=== PATIENT | female | born 1975 | race Caucasian/White ===

== ENCOUNTER 2018-01-18 07:56 | Day surgery (SDC) | payer OTHER ==
[2018-01-17 13:30] VITALS: BMI 20.9
[2018-01-18] MEDS ORDERED: EPINEPHrine 1 MG/ML AMP ONE (09:45)
[2018-01-18] MEDS ORDERED: Fentanyl 100 MCG/2 ML VIAL ONE ×4 (09:59→12:43)
[2018-01-18] MEDS ORDERED: Lidocaine 1% PF 5 ML VIAL ONE (10:03)
[2018-01-18] MEDS ORDERED: Ondansetron HCl/PF 4 MG/2 ML Vial ONE (10:03)
[2018-01-18] MEDS ORDERED: Dexamethasone 20 MG/5 ML VIAL ONE (10:03)
[2018-01-18] MEDS ORDERED: Glycopyrrolate 0.2 MG/ML 5 ML SYRINGE ONE (10:03)
[2018-01-18] MEDS ORDERED: PROPOFOL 200 MG/20 ML VIAL ONE (10:03)
[2018-01-18] MEDS ORDERED: Midazolam HCl 2 mg/2 ml Vial ONE (10:18)
[2018-01-18] MEDS ORDERED: PROPOFOL 20 ML ONE (11:13)
[2018-01-18] MEDS ORDERED: Ferric Subsulfate 8 ML BOT ONE (11:29)
[2018-01-18] MEDS ORDERED: Meperidine HCl/PF 25 MG/ML VIAL IV PRN (12:00)
[2018-01-18] MEDS ORDERED: Ondansetron HCl/PF 4 MG/2 ML Vial IVP PRN (12:00)
[2018-01-18] MEDS ORDERED: Promethazine HCl 25 MG/ML VIAL IM/IV PRN (12:00)
[2018-01-18] MEDS ORDERED: Meperidine HCl/PF 25 MG/ML VIAL ONE (12:13)
[2018-01-18] MEDS ORDERED: Non-Formulary Medication 1 EACH PO PRN (13:21)
[2018-01-18] MEDS ORDERED: HYDROcodone/Acetaminophen 5/325 mg Tablet ONE (13:27)
--- NOTE | 2018-01-18 19:44 | OP ---
PREOPERATIVE DIAGNOSES: Hoarseness, bilateral vocal cord lesions, chronic tonsillitis. POSTOPERATIVE DIAGNOSES: Hoarseness, bilateral vocal cord lesions, chronic tonsillitis. PROCEDURE PERFORMED: Tonsillectomy over 12 years of age, microsuspension laryngoscopy with vocal cor d biopsy. PROCEDURE IN DETAIL: After consent was obtained, the patient was identified, brought to the operatin g room, and placed on the operating table in the supine position. General endotracheal anesthesia an d intravenous access was obtained and we proceeded with positioning the patient for oropharyngeal faiza lavelle. Oropharyngeal exposure was obtained with a Tristan-Isaías mouth gag after a head drape was placed and secured with a towel clip. The Tristan-Isaías mouth gag was then suspended from the Staples tray and palatal elevation was achieved with a red rubber catheter. The right tonsil was addressed first. We used a curved Allis to grasp the tonsil and retract it medially as an anterior pillar incision was m valeria with a #12 blade. The retrotonsillar fascial plane was then established and blunt dissection was performed with the suction cautery. Blood vessels were anticipated, identified, and cauterized as t hey were encountered. Ultimately, dissection was carried to the posterior tonsillar pillar mucosa wh ich was incised hemostatically, as well as the base of tongue connection. The tonsil was then passed off as a specimen and bleeding points within the tonsillar bed were cauter ized under direct visualization. We subsequently turned our attention to the contralateral side, whe re using a similar technique, a near identical procedure was performed. Again, the tonsil was graspe d and retracted medially with a curved Allis as an anterior pillar incision was made with a #12 blade . The retrotonsillar fascial plane was established and while the anterior pillar was retracted media lly, the hemostatic blunt dissection of the tonsil with a suction cautery was performed with blood ve ssels anticipated, identified, and cauterized as they were encountered. Again, dissection continued to the base of tongue and posterior tonsillar pillar mucosa which was incised in a hemostatic fashion . The tonsillar beds were then carefully inspected and bleeding points were identified and cauterize d with a suction cautery. After this portion of the procedure, hemostasis was completely obtained. The patient's oral cavity was copiously irrigated with iced saline and subsequently suctioned. We th en used the red rubber catheter to suction the gastric contents and the patient was subsequently arou sed, awakened, and extubated without difficulty and transported to the recovery room in stable condit ion. There were no complications. Following the tonsillectomy, the larynx was examined and jet ventilating tube was placed. Under micr oscopic visualization, we were able to examine the larynx once it was suspended and the laryngoscope was used to facilitate exposure. 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 A biopsy was obtained of the superficial mucosa of the right true cord under microscopic visualization with not to violate the vocal ligament where the phonating surface of the vocal fold wa s sent for permanent histologic evaluation. The patient was then awakened, extubated, and [facility] where she remained in stable condition prior to discharge home.
== END 2018-01-18 13:47 | disposition home or self-care (01) ==
LOC: SDC 07:56
PROVIDERS: ATTEND Specialist
PROC: 0CBT8ZX Excision of Right Vocal Cord, Via Natural or Artificial Opening Endoscopic, Diagnostic (ICD-10-PCS; principal; 2018-01-18)
PROC: 0CTPXZZ Resection of Tonsils, External Approach (ICD-10-PCS; principal; 2018-01-18)
DX: J35.01 Chronic tonsillitis (principal); D02.0 Carcinoma in situ of larynx; J38.4 Edema of larynx; G43.909 Migraine, unspecified, not intractable, without status migrainosus; F17.210 Nicotine dependence, cigarettes, uncomplicated; K21.9 Gastro-esophageal reflux disease without esophagitis; Z79.52 Long term (current) use of systemic steroids; Z79.899 Other long term (current) drug therapy; Z88.2 Allergy status to sulfonamides; Z88.5 Allergy status to narcotic agent; Z88.8 Allergy status to other drugs, medicaments and biological substances
CPT/HCPCS: 85014; 88304; 88305; 88342; 96374; 96375; 96376; J0171; J2175; J2250; J2704; J3010